=== PATIENT | female | born 1960 | race Caucasian/White ===

== ENCOUNTER 2019-04-07 12:57 | Emergency (ER) | payer SELFPAY ==
--- NOTE | 2019-04-07 13:02 | ERPHSYRPT ---
- History of Present Illness Time Seen by Provider: 04/07/19 13:01 Historian: patient, family Exam Limitations: no limitations Physician History: 58 y/o white female presents with right flank and right upper quad abd pain. pts pain with relatively quick onset earlier today. pt has had an appendectomy in past. pt denies vaginal bleeding. she denies hematuria or dysuria. pt has never had this pain before. Timing/Duration: today Activities at Onset: none Quality: sharpness, stabbing Abdominal Pain Onset Location: RUQ, flank (right) Pain Radiation: back Severity of Pain-Max: moderate Severity of Pain-Current: moderate Modifying Factors: Improves With: nothing Associated Symptoms: back, nausea Allergies/Adverse Reactions: morphine Allergy (Verified 04/07/19 13:16) Home Medications: Tramadol HCl 50 mg [Ultram 50 mg] 50 mg BID 04/07/19 [History] - Review of Systems Constitutional: No Symptoms Eyes: No Symptoms Ears, Nose, & Throat: No Symptoms Respiratory: No Symptoms Cardiac: No Symptoms Abdominal/Gastrointestinal: Abdominal Pain (ruq), Nausea Genitourinary Symptoms: No Symptoms, Incontinence Musculoskeletal: Back Pain Skin: No Symptoms Neurological: No Symptoms Psychological: No Symptoms Endocrine: No Symptoms Hematologic/Lymphatic: No Symptoms Immunological/Allergic: No Symptoms All Other Systems: Reviewed and Negative - Past Medical History Neurological History: No Pertinent History ENT History: No Pertinent History Cardiac History: No Pertinent History Respiratory History: No Pertinent History Endocrine Medical History: No Pertinent History Musculoskeletal History: No Pertinent History GI Medical History: No Pertinent History History: No Pertinent History Psycho-Social History: No Pertinent History Female Reproductive Disorders: No Pertinent History - Past Surgical History Neuro Surgical History: No Pertinent History Cardiac: No Pertinent History Respiratory: No Pertinent History Gastrointestinal: No Pertinent History Genitourinary: No Pertinent History Musculoskeletal: No Pertinent History Female Surgical History: No Pertinent History - Nursing Vital Signs Nursing Vital Signs: Initial Vital Signs Temperature 99.0 F 04/07/19 13:09 Pulse Rate 100 H 04/07/19 13:09 Respiratory Rate 16 04/07/19 13:09 Blood Pressure 148/88 04/07/19 13:09 O2 Sat by Pulse Oximetry 99 04/07/19 13:09 Pain Scale Pain Intensity 4 - Physical Exam General Appearance: moderate distress, alert, anxiety Eye Exam: PERRL/EOMI, eyes nml inspection Ears, Nose, Throat Exam: normal ENT inspection, moist mucous membranes Neck Exam: normal inspection, non-tender, supple, full range of motion Respiratory Exam: normal breath sounds, lungs clear, airway intact, No chest tenderness, No respiratory distress Cardiovascular Exam: regular rate/rhythm, normal heart sounds, normal peripheral pulses Gastrointestinal/Abdomen Exam: soft, normal bowel sounds, No tenderness Pelvic Exam: not done Rectal Exam: not done Back Exam: normal inspection, normal range of motion, No CVA tenderness, No vertebral tenderness Extremity Exam: normal inspection, normal range of motion, pelvis stable Neurologic Exam: alert, oriented x 3, cooperative, vice president pharmacy II-XII nml as tested Skin Exam: normal color, warm, dry Lymphatic Exam: No adenopathy SpO2 Interpretation: normal O2 Delivery: Room Air - Course Nursing assessment & vital signs reviewed: Yes Ordered Tests: Active Orders 24 hr Category Date Time Status IV Insertion STAT Care 04/07/19 13:36 Active ABDOMEN AND PELVIS W/0 CONTRAS [CT] Stat Exams 04/07/19 13:36 Ordered AMYLASE Stat Lab 04/07/19 13:36 Completed CBC W DIFF Stat Lab 04/07/19 13:36 Completed CMP Stat Lab 04/07/19 13:36 Completed CULTURE,URINE Stat Lab 04/07/19 13:41 Received LIPASE Stat Lab 04/07/19 13:36 Completed Lactic Acid Stat Lab 04/07/19 13:36 Completed UA W/RFX UR CULTURE Stat Lab 04/07/19 13:41 Completed Medication Summary Generic Name Dose Route Start Last Admin Trade Name Freq PRN Reason Stop Dose Admin Sodium Chloride 500 mls @ 500 mls/hr 04/07/19 15:42 Sodium Chloride 0.9% 500 Ml IV 04/07/19 16:41 .Q1H ONE Discontinued Medications Generic Name Dose Route Start Last Admin Trade Name Freq PRN Reason Stop Dose Admin Sodium Chloride 1,000 mls @ 999 mls/hr 04/07/19 13:36 04/07/19 15:37 Sodium Chloride 0.9% 1000 Ml IV 04/07/19 14:36 Infused .Q1H1M STA Infusion Sodium Chloride Confirm 04/07/19 13:43 Sodium Chloride 0.9% 1000 Ml Administered 04/07/19 13:44 Dose 1,000 mls @ ud .ROUTE .STK-MED ONE Ketorolac Tromethamine 30 mg 04/07/19 14:04 04/07/19 14:06 Toradol 30 Mg Injection IV 04/07/19 14:05 30 mg STAT ONE Administration Ketorolac Tromethamine Confirm 04/07/19 14:04 Toradol 30 Mg Injection Administered 04/07/19 14:05 Dose 30 mg .ROUTE .STK-MED ONE Meperidine HCl 25 mg 04/07/19 13:38 04/07/19 13:46 Demerol 25mg Syringe IV 04/07/19 13:39 25 mg STAT ONE Administration Meperidine HCl Confirm 04/07/19 13:43 Demerol 25mg Syringe Administered 04/07/19 13:44 Dose 25 mg .ROUTE .STK-MED ONE Ondansetron HCl 4 mg 04/07/19 13:36 04/07/19 13:46 Zofran 4 Mg/2 Ml Vial IV 04/07/19 13:37 4 mg STAT ONE Administration Ondansetron HCl Confirm 04/07/19 13:42 Zofran 4 Mg/2 Ml Vial Administered 04/07/19 13:43 Dose 4 mg .ROUTE .STK-MED ONE Lab/Rad Data: Laboratory Result Diagrams 04/07/19 13:36 04/07/19 13:36 Laboratory Results 04/07/19 04/07/19 04/07/19 Range/Units 13:41 13:36 13:36 WBC (4.0-10.5) K/mm3 RBC (4.1-5.4) M/mm3 Hgb (12.0-16.0) gm/dl Hct (35-47) % MCV (78-100) fl MCH (26-32) pg MCHC (32-36) g/dl RDW (11.5-14.0) % Plt Count (150-450) K/mm3 MPV (6-9.5) fl Gran % (36.0-66.0) % Eos # (Auto) (0-0.5) Absolute Lymphs (auto) (1.0-4.6) Absolute Monos (auto) (0.0-1.3) Lymphocytes % (24.0-44.0) % Monocytes % (0.0-12.0) % Eosinophils % (0.00-5.0) % Basophils % (0.0-0.4) % Absolute Granulocytes (1.4-6.9) Basophils # (0-0.4) Sodium 138 (137-145) mmol/L Potassium 3.7 (3.5-5.1) mmol/L Chloride 100 (98-107) mmol/L Carbon Dioxide 26 (22-30) mmol/L Anion Gap 15.5 H (5-15) MEQ/L BUN 9 (7-17) mg/dL Creatinine 0.47 L (0.52-1.04) mg/dL Estimated GFR > 60.0 ML/MIN Glucose 124 H (74-106) mg/dL Lactic Acid 1.4 (0.4-2.0) Calcium 9.8 (8.4-10.2) mg/dL Total Bilirubin 0.60 (0.2-1.3) mg/dL AST 47 H (14-36) U/L ALT 44 H (0-35) U/L Alkaline Phosphatase 82 (38-126) U/L Serum Total Protein 8.4 H (6.3-8.2) g/dL Albumin 4.8 (3.5-5.0) g/dL Amylase 70 (30-110) U/L Lipase 86 (23-300) U/L Urine Color YELLOW (YELLOW) Urine Appearance CLEAR (CLEAR) Urine pH 6.0 (5-6) Ur Specific [place] 1.014 (1.005-1.025) Urine Protein NEGATIVE (Negative) Urine Ketones NEGATIVE (NEGATIVE) Urine Blood LARGE (0-5) Dany/ul Urine Nitrite NEGATIVE (NEGATIVE) Urine Bilirubin NEGATIVE (NEGATIVE) Urine Urobilinogen NEGATIVE (0-1) mg/dL Ur Leukocyte Esterase NEGATIVE (NEGATIVE) Urine WBC (Auto) 3-5 (0-5) /HPF Urine RBC (Auto) 11-15 (0-2) /HPF U Epithel Cells (Auto) FEW (FEW) /HPF Urine Bacteria (Auto) RARE (NEGATIVE) /HPF Urine Mucus (Auto) SLIGHT (NEGATIVE) /HPF Urine Culture Reflexed YES (NO) Urine Glucose NEGATIVE (NEGATIVE) mg/dL 04/07/19 Range/Units 13:36 WBC 12.2 H (4.0-10.5) K/mm3 RBC 4.63 (4.1-5.4) M/mm3 Hgb 13.9 (12.0-16.0) gm/dl Hct 41.4 (35-47) % MCV 89.4 (78-100) fl MCH 30.0 (26-32) pg MCHC 33.6 (32-36) g/dl RDW 12.5 (11.5-14.0) % Plt Count 260 (150-450) K/mm3 MPV 11.1 H (6-9.5) fl Gran % 83.2 H (36.0-66.0) % Eos # (Auto) 0.07 (0-0.5) Absolute Lymphs (auto) 0.96 L (1.0-4.6) Absolute Monos (auto) 1.00 (0.0-1.3) Lymphocytes % 7.9 L (24.0-44.0) % Monocytes % 8.2 (0.0-12.0) % Eosinophils % 0.6 (0.00-5.0) % Basophils % 0.1 (0.0-0.4) % Absolute Granulocytes 10.17 H (1.4-6.9) Basophils # 0.01 (0-0.4) Sodium (137-145) mmol/L Potassium (3.5-5.1) mmol/L Chloride (98-107) mmol/L Carbon Dioxide (22-30) mmol/L Anion Gap (5-15) MEQ/L BUN (7-17) mg/dL Creatinine (0.52-1.04) mg/dL Estimated GFR ML/MIN Glucose (74-106) mg/dL Lactic Acid (0.4-2.0) Calcium (8.4-10.2) mg/dL Total Bilirubin (0.2-1.3) mg/dL AST (14-36) U/L ALT (0-35) U/L Alkaline Phosphatase (38-126) U/L Serum Total Protein (6.3-8.2) g/dL Albumin (3.5-5.0) g/dL Amylase (30-110) U/L Lipase (23-300) U/L Urine Color (YELLOW) Urine Appearance (CLEAR) Urine pH (5-6) Ur Specific [place] (1.005-1.025) Urine Protein (Negative) Urine Ketones (NEGATIVE) Urine Blood (0-5) Dany/ul Urine Nitrite (NEGATIVE) Urine Bilirubin (NEGATIVE) Urine Urobilinogen (0-1) mg/dL Ur Leukocyte Esterase (NEGATIVE) Urine WBC (Auto) (0-5) /HPF Urine RBC (Auto) (0-2) /HPF U Epithel Cells (Auto) (FEW) /HPF Urine Bacteria (Auto) (NEGATIVE) /HPF Urine Mucus (Auto) (NEGATIVE) /HPF Urine Culture Reflexed (NO) Urine Glucose (NEGATIVE) mg/dL - Progress Progress: improved, re-examined Progress Note: 04/07/19 15:43 ct abd/pelvis-acute cholecystitis with pericholecystic fluid and cholelithiasis 04/07/19 15:45 i had long d/w pt and her sig other regarding admission into hospital. i discussed risks of not being admitted. i discussed alternatives. i recommended she be admitted for further iv hydration, pain control, iv antibiotics and general surgery consultation. pt discussed with her sig other. despite my discussion and recommendation, pt has decided she wants to go home. Counseled pt/family regarding: lab results, diagnosis, need for follow-up, rad results - Departure Departure Disposition: Home Clinical Impression: Acute cholecystitis due to biliary calculus Condition: Stable Critical Care Time: No Referrals: DOCTOR,NO FAMILY [Primary Care Provider] - Additional Instructions: clear liquid diet. follow up with general surgeon for further management. return to ED if symptoms worsen. stop tramadol while taking norco. Prescriptions: Hydrocodone/APAP 5-325 Tab^^^ [[place] 5-325 Tablet^^^] 1 tab PO Q6HPRN PRN #10 tablet MDD 6 PRN Reason: Pain Ondansetron ODT 4 MG [Zofran Odt 4 mg] 4 mg PO Q6H PRN PRN #10 tab.rapdis PRN Reason: Vomiting Ciprofloxacin [Cipro 500 MG] 500 mg PO BID #14 tablet
[2019-04-07] MEDS ORDERED: Sodium Chloride 0.9% 1000 ML 1,000 ML IV STA (13:36)
[2019-04-07] MEDS ORDERED: Zofran 4 MG/2 ML VIAL IV ONE (13:36)
[2019-04-07] MEDS ORDERED: DEMEROL 25MG SYRINGE IV ONE ×2 (13:38→16:31)
[2019-04-07] MEDS ORDERED: Zofran 4 MG/2 ML VIAL ONE (13:42)
[2019-04-07] MEDS ORDERED: Sodium Chloride 0.9% 1000 ML 1,000 ML ONE (13:43)
[2019-04-07] MEDS ORDERED: DEMEROL 25MG SYRINGE ONE ×2 (13:43→16:34)
[2019-04-07 13:50] LABS: Absolute Neutrophil Ct (ANC) 10.17 (1.4-6.9); BASOPHIL % 0.1 % (0.0-0.4); Basophil (Absolute #) 0.01 (0-0.4); Eosinophil % 0.6 % (0.00-5.0); Eosinophil (Absolute #) 0.07 (0-0.5); Hematocrit 41.4 % (35-47); Hemoglobin 13.9 gm/dl (12.0-16.0); Lymphocyte (Absolute #) 0.96 (1.0-4.6); Lymphocytes % 7.9 % (24.0-44.0); Mean Cell Volume 89.4 fl (78-100); Mean Corpuscular Hgb Concent. 33.6 g/dl (32-36); Mean Platelet Volume 11.1 fl (6-9.5); Monocytes % 8.2 % (0.0-12.0); Neutrophil % 83.2 % (36.0-66.0); Platelet Count 260 K/mm3 (150-450); Red Blood Count 4.63 M/mm3 (4.1-5.4); Red Cell Distribution Width 12.5 % (11.5-14.0); White Blood Count 12.2 K/mm3 (4.0-10.5)
[2019-04-07 13:55] LABS: Appearance CLEAR (CLEAR); Bacteria RARE /HPF (NEGATIVE); Bilirubin NEGATIVE (NEGATIVE); Blood LARGE Ery/ul (0-5); Epithelial Cells FEW /HPF (FEW); Glucose NEGATIVE (NEGATIVE); Ketones NEGATIVE (NEGATIVE); Leukocyte Esterase NEGATIVE (NEGATIVE); Mucus SLIGHT /HPF (NEGATIVE); Nitrite NEGATIVE (NEGATIVE); Protein,Urine Dip NEGATIVE (Negative); Specific Gravity 1.014 (1.005-1.025); Urobilinogen NEGATIVE mg/dL (0-1)
[2019-04-07 14:03] LABS: ALBUMIN 4.8 g/dL (3.5-5.0); ALKALINE PHOSPHATASE 82 U/L (38-126); AMYLASE 70 U/L (30-110); ANION GAP 15.5 MEQ/L (5-15); BLOOD UREA NITROGEN 9 mg/dL (7-17); CHLORIDE 100 mmol/L (98-107); Calcium 9.8 mg/dL (8.4-10.2); Carbon Dioxide 26 mmol/L (22-30); Creatinine 1 0.47 mg/dL (0.52-1.04); Glucose 124 mg/dL (74-106); LIPASE 86 U/L (23-300); Potassium 3.7 mmol/L (3.5-5.1); SGOT/AST 47 U/L (14-36); SGPT/ALT 44 U/L (0-35); SODIUM 138 mmol/L (137-145); Total Protein 8.4 g/dL (6.3-8.2)
[2019-04-07] MEDS ORDERED: TORAdol 30 mg Injection IV ONE (14:04)
[2019-04-07] MEDS ORDERED: TORAdol 30 mg Injection ONE (14:04)
[2019-04-07] MEDS ORDERED: Sodium Chloride 0.9% 500 ML 500 ML IV ONE ×2 (15:42→15:51)
[2019-04-07] MEDS ORDERED: Cipro 500 MG PO ONE (15:45)
[2019-04-07] MEDS ORDERED: Cipro 500 MG ONE (15:51)
[2019-04-07 15:58] VITALS: BP 129/77; PULSE 100; O2SAT 99
--- NOTE | 2019-04-07 17:12 | XRAY ---
Indication: Right abdomen pain and vomiting. Multiple contiguous axial images obtained through the abdomen and pelvis without contrast as ordered. Comparison: None. Lung bases are clear. Heart is not enlarged. Noncontrasted stomach and bowel loops appear nonobstructed. Patient reports previous appendectomy. There is mild diffuse scattered colonic fecal debris throughout. Abnormally distended gallbladder with at least 2 gallstones, largest 2 cm. Left lobe of the liver demonstrates 9 mm hypodense lesion. Remaining liver, pancreas, spleen, adrenal glands, kidneys, ureters, and bladder appear unremarkable for noncontrast exam. There are mild aortoiliac calcifications without AAA. Osseous structures intact with mild lumbosacral junction degenerative changes. Inferior medial right femoral head demonstrates chunky heterotopic ossifications either degenerative versus old injury. Impression: 1. Abnormally distended gallbladder with gallstones. Gallbladder sonogram may yield further information. 2. Fecal stasis without obstruction. 3. Indeterminate left lobe hypodense hepatic lesion. Sonogram or CT liver with contrast using hemangioma protocol may yield further information. 4. Incidental chronic bony findings. Comment: Preliminary interpretation was made by [facility]. No critical discrepancy. CTDI 3.19
== END 2019-04-07 16:45 | disposition home or self-care (01) ==
LOC: ED 12:57
DX: K80.00 Calculus of gallbladder with acute cholecystitis without obstruction (principal); R10.11 Right upper quadrant pain; R11.0 Nausea
CPT/HCPCS: 36415; 74176; 80053; 81001; 82150; 83605; 83690; 85025; 87086; 96360; 96361; 96374; 96375; 96376; 99284; J1885; J2175; J2405; A9270-GY

== ENCOUNTER 2019-04-15 08:40 | Inpatient (IN) | payer MEDICAID ==
--- NOTE | 2019-04-15 09:10 | ERPHSYRPT ---
- History of Present Illness Time Seen by Provider: 04/15/19 09:00 Historian: patient Exam Limitations: no limitations Patient Subjective Stated Complaint: states has had ruq abd pain since yesterday. hx gallstones and was seen last week for same pain. is scheduled to see surgeon on apr 23 for consult for surgery. denies n/v/d. Triage Nursing Assessment: ambulated to room per self. skin w/d, color normal, resp nonlabored. abd tender ruq. normal bowel sounds. Physician History: 58 y/o white female seen by me 8 days ago for same sx. pt has an appt with surgeon 04/23/19. pt has known h/o cholelithiasis and had ct evidence of acute cholecystitis last week. she refused admission. sx of ruq abd has recurred but n /v/d have not recurred. pt sx responded to demerol. pt can take norco. she is out of her pain meds. pt sent home 8 days ago with rx for cipro, zofran and norco. denies obstructive sx. Timing/Duration: yesterday Quality: sharpness, stabbing Abdominal Pain Onset Location: RUQ Pain Radiation: no radiation Severity of Pain-Max: moderate Severity of Pain-Current: moderate Associated Symptoms: No chest pain, No diarrhea, No nausea, No vomiting Previous symptoms: same symptoms as today Allergies/Adverse Reactions: morphine Allergy (Verified 04/15/19 08:54) Home Medications: No Reportable Medications [No Reported Medications] 04/15/19 [History] Hx Tetanus, Diphtheria Vaccination/Date Given: No Hx Influenza Vaccination/Date Given: Yes Hx Pneumococcal Vaccination/Date Given: No - Review of Systems Constitutional: No Symptoms Eyes: No Symptoms Ears, Nose, & Throat: No Symptoms Respiratory: No Symptoms Cardiac: No Symptoms Abdominal/Gastrointestinal: Abdominal Pain (ruq) Genitourinary Symptoms: No Symptoms Musculoskeletal: No Symptoms Skin: No Symptoms Neurological: No Symptoms Psychological: No Symptoms Endocrine: No Symptoms Hematologic/Lymphatic: No Symptoms Immunological/Allergic: No Symptoms All Other Systems: Reviewed and Negative - Past Medical History Pertinent Past Medical History: Yes Neurological History: No Pertinent History ENT History: No Pertinent History Cardiac History: No Pertinent History Respiratory History: No Pertinent History Endocrine Medical History: No Pertinent History Musculoskeletal History: No Pertinent History GI Medical History: Gallbladder Disease History: No Pertinent History Psycho-Social History: No Pertinent History Female Reproductive Disorders: No Pertinent History - Past Surgical History Past Surgical History: Yes Neuro Surgical History: No Pertinent History Cardiac: No Pertinent History Respiratory: No Pertinent History Gastrointestinal: Appendectomy Genitourinary: No Pertinent History Musculoskeletal: No Pertinent History Female Surgical History: Hysterectomy, Section Other Surgical History: carpal tunnel - Social History Smoking Status: Never smoker Exposure to second hand smoke: No Drug Use: none Patient Lives Alone: No - Female History Hx Now: No - Nursing Vital Signs Nursing Vital Signs: Initial Vital Signs Temperature 97.9 F 04/15/19 08:43 Pulse Rate 118 H 04/15/19 08:43 Respiratory Rate 18 04/15/19 08:43 Blood Pressure 147/92 04/15/19 08:43 O2 Sat by Pulse Oximetry 100 04/15/19 08:43 Pain Scale Pain Intensity 5 - Physical Exam General Appearance: moderate distress, alert, anxiety Eye Exam: PERRL/EOMI, eyes nml inspection Ears, Nose, Throat Exam: normal ENT inspection, moist mucous membranes Neck Exam: normal inspection, non-tender, supple, full range of motion Respiratory Exam: normal breath sounds, lungs clear, airway intact, No chest tenderness, No respiratory distress Cardiovascular Exam: tachycardia Pelvic Exam: not done Rectal Exam: not done Back Exam: normal inspection, normal range of motion, No CVA tenderness, No vertebral tenderness Extremity Exam: normal inspection, normal range of motion, pelvis stable Neurologic Exam: alert, oriented x 3, cooperative, 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 Skin Exam: normal color, warm, dry Lymphatic Exam: No adenopathy SpO2 Interpretation: normal SpO2: 100 O2 Delivery: Room Air - Course Nursing assessment & vital signs reviewed: Yes Ordered Tests: Active Orders 24 hr Category Date Time Status IV Insertion STAT Care 04/15/19 09:12 Active AMYLASE Stat Lab 04/15/19 09:20 Completed CBC W DIFF Stat Lab 04/15/19 09:20 Completed CMP Stat Lab 04/15/19 09:20 Completed LIPASE Stat Lab 04/15/19 09:20 Completed Lactic Acid Stat Lab 04/15/19 09:12 Completed UA W/RFX UR CULTURE Stat Lab 04/15/19 09:20 Completed Transfer Order Routine Transfer 04/15/19 Ordered Medication Summary Discontinued Medications Generic Name Dose Route Start Last Admin Trade Name Freq PRN Reason Stop Dose Admin Hydromorphone HCl 1 mg 04/15/19 09:12 04/15/19 09:19 Hydromorphone 1 Mg/Ml Ampule IV 04/15/19 09:13 Not Given STAT ONE Sodium Chloride 1,000 mls @ 999 mls/hr 04/15/19 09:12 04/15/19 10:46 Sodium Chloride 0.9% 1000 Ml IV 04/15/19 10:12 Infused .Q1H1M STA Infusion Sodium Chloride Confirm 04/15/19 09:22 Sodium Chloride 0.9% 1000 Ml Administered 04/15/19 09:23 Dose 1,000 mls @ ud .ROUTE .STK-MED ONE Meperidine HCl 25 mg 04/15/19 09:17 04/15/19 09:25 Demerol 25mg Syringe IV 04/15/19 09:18 25 mg STAT ONE Administration Meperidine HCl Confirm 04/15/19 09:22 Demerol 25mg Syringe Administered 04/15/19 09:23 Dose 25 mg .ROUTE .STK-MED ONE Meperidine HCl 25 mg 04/15/19 10:30 04/15/19 10:48 Demerol 25mg Syringe IV 04/15/19 10:31 25 mg STAT ONE Administration Meperidine HCl Confirm 04/15/19 10:47 Demerol 25mg Syringe Administered 04/15/19 10:48 Dose 25 mg .ROUTE .STK-MED ONE Ondansetron HCl 4 mg 04/15/19 09:12 04/15/19 09:25 Zofran 4 Mg/2 Ml Vial IV 04/15/19 09:13 4 mg STAT ONE Administration Ondansetron HCl Confirm 04/15/19 09:22 Zofran 4 Mg/2 Ml Vial Administered 04/15/19 09:23 Dose 4 mg .ROUTE .STK-MED ONE Lab/Rad Data: Laboratory Result Diagrams 04/15/19 09:20 04/15/19 09:20 Laboratory Results 04/15/19 04/15/19 04/15/19 Range/Units 09:20 09:20 09:20 WBC 7.7 (4.0-10.5) K/mm3 RBC 4.15 (4.1-5.4) M/mm3 Hgb 12.4 (12.0-16.0) gm/dl Hct 38.2 (35-47) % MCV 92.0 (78-100) fl MCH 29.9 (26-32) pg MCHC 32.5 (32-36) g/dl RDW 12.1 (11.5-14.0) % Plt Count 312 (150-450) K/mm3 MPV 10.4 H (6-9.5) fl Gran % 68.4 H (36.0-66.0) % Eos # (Auto) 0.40 (0-0.5) Absolute Lymphs (auto) 1.35 (1.0-4.6) Absolute Monos (auto) 0.65 (0.0-1.3) Lymphocytes % 17.6 L (24.0-44.0) % Monocytes % 8.5 (0.0-12.0) % Eosinophils % 5.2 H (0.00-5.0) % Basophils % 0.3 (0.0-0.4) % Absolute Granulocytes 5.24 (1.4-6.9) Basophils # 0.02 (0-0.4) Sodium 141 (137-145) mmol/L Potassium 4.7 (3.5-5.1) mmol/L Chloride 103 (98-107) mmol/L Carbon Dioxide 29 (22-30) mmol/L Anion Gap 13.6 (5-15) MEQ/L BUN 11 (7-17) mg/dL Creatinine 0.60 (0.52-1.04) mg/dL Estimated GFR > 60.0 ML/MIN Glucose 99 (74-106) mg/dL Lactic Acid (0.4-2.0) Calcium 9.7 (8.4-10.2) mg/dL Total Bilirubin 0.40 (0.2-1.3) mg/dL AST 23 (14-36) U/L ALT 31 (0-35) U/L Alkaline Phosphatase 110 (38-126) U/L Serum Total Protein 8.0 (6.3-8.2) g/dL Albumin 4.2 (3.5-5.0) g/dL Amylase 64 (30-110) U/L Lipase 90 (23-300) U/L Urine Color YELLOW (YELLOW) Urine Appearance SLIGHTLY CLOUDY (CLEAR) Urine pH 8.0 (5-6) Ur Specific [place] 1.014 (1.005-1.025) Urine Protein NEGATIVE (Negative) Urine Ketones NEGATIVE (NEGATIVE) Urine Blood SMALL (0-5) Dany/ul Urine Nitrite NEGATIVE (NEGATIVE) Urine Bilirubin NEGATIVE (NEGATIVE) Urine Urobilinogen NEGATIVE (0-1) mg/dL Ur Leukocyte Esterase NEGATIVE (NEGATIVE) Urine WBC (Auto) 0-2 (0-5) /HPF Urine RBC (Auto) 6-10 (0-2) /HPF U Epithel Cells (Auto) FEW (FEW) /HPF Urine Bacteria (Auto) FEW (NEGATIVE) /HPF Urine Mucus (Auto) SLIGHT (NEGATIVE) /HPF Urine Culture Reflexed NO (NO) Urine Glucose NEGATIVE (NEGATIVE) mg/dL 04/15/19 Range/Units 09:12 WBC (4.0-10.5) K/mm3 RBC (4.1-5.4) M/mm3 Hgb (12.0-16.0) gm/dl Hct (35-47) % MCV (78-100) fl MCH (26-32) pg MCHC (32-36) g/dl RDW (11.5-14.0) % Plt Count (150-450) K/mm3 MPV (6-9.5) fl Gran % (36.0-66.0) % Eos # (Auto) (0-0.5) Absolute Lymphs (auto) (1.0-4.6) Absolute Monos (auto) (0.0-1.3) Lymphocytes % (24.0-44.0) % Monocytes % (0.0-12.0) % Eosinophils % (0.00-5.0) % Basophils % (0.0-0.4) % Absolute Granulocytes (1.4-6.9) Basophils # (0-0.4) Sodium (137-145) mmol/L Potassium (3.5-5.1) mmol/L Chloride (98-107) mmol/L Carbon Dioxide (22-30) mmol/L Anion Gap (5-15) MEQ/L BUN (7-17) mg/dL Creatinine (0.52-1.04) mg/dL Estimated GFR ML/MIN Glucose (74-106) mg/dL Lactic Acid 1.3 (0.4-2.0) Calcium (8.4-10.2) mg/dL Total Bilirubin (0.2-1.3) mg/dL AST (14-36) U/L ALT (0-35) U/L Alkaline Phosphatase (38-126) U/L Serum Total Protein (6.3-8.2) g/dL Albumin (3.5-5.0) g/dL Amylase (30-110) U/L Lipase (23-300) U/L Urine Color (YELLOW) Urine Appearance (CLEAR) Urine pH (5-6) Ur Specific [place] (1.005-1.025) Urine Protein (Negative) Urine Ketones (NEGATIVE) Urine Blood (0-5) Dany/ul Urine Nitrite (NEGATIVE) Urine Bilirubin (NEGATIVE) Urine Urobilinogen (0-1) mg/dL Ur Leukocyte Esterase (NEGATIVE) Urine WBC (Auto) (0-5) /HPF Urine RBC (Auto) (0-2) /HPF U Epithel Cells (Auto) (FEW) /HPF Urine Bacteria (Auto) (NEGATIVE) /HPF Urine Mucus (Auto) (NEGATIVE) /HPF Urine Culture Reflexed (NO) Urine Glucose (NEGATIVE) mg/dL - Progress Progress: improved, pain not gone completely, re-examined Progress Note: 04/15/19 11:[address] morgan. i reviewed pts labs, xray results, condition and hx with her. she accepts pt to be placed in observation with [facility] surgical consult Discussed with : Jordyn Counseled pt/family regarding: lab results, diagnosis - Departure Departure Disposition: Observation Clinical Impression: RUQ abdominal pain, Cholecystitis with cholelithiasis Condition: Stable Critical Care Time: No Referrals: DOCTOR,NO FAMILY [Primary Care Provider] -
[2019-04-15] MEDS ORDERED: Zofran 4 MG/2 ML VIAL IV ONE (09:12)
[2019-04-15] MEDS ORDERED: Hydromorphone 1 mg/ml Ampule IV ONE (09:12)
[2019-04-15] MEDS ORDERED: Sodium Chloride 0.9% 1000 ML 1,000 ML IV STA (09:12)
[2019-04-15] MEDS ORDERED: DEMEROL 25MG SYRINGE IV ONE ×2 (09:17→10:30)
[2019-04-15] MEDS ORDERED: Zofran 4 MG/2 ML VIAL ONE (09:22)
[2019-04-15] MEDS ORDERED: Sodium Chloride 0.9% 1000 ML 1,000 ML ONE (09:22)
[2019-04-15] MEDS ORDERED: DEMEROL 25MG SYRINGE ONE ×2 (09:22→10:47)
[2019-04-15 09:30] LABS: Absolute Neutrophil Ct (ANC) 5.24 (1.4-6.9); BASOPHIL % 0.3 % (0.0-0.4); Basophil (Absolute #) 0.02 (0-0.4); Eosinophil % 5.2 % (0.00-5.0); Hematocrit 38.2 % (35-47); Hemoglobin 12.4 gm/dl (12.0-16.0); Lymphocyte (Absolute #) 1.35 (1.0-4.6); Lymphocytes % 17.6 % (24.0-44.0); Mean Corpuscular Hemoglobin 29.9 pg (26-32); Mean Corpuscular Hgb Concent. 32.5 g/dl (32-36); Mean Platelet Volume 10.4 fl (6-9.5); Monocyte (Absolute #) 0.65 (0.0-1.3); Monocytes % 8.5 % (0.0-12.0); Neutrophil % 68.4 % (36.0-66.0); Platelet Count 312 K/mm3 (150-450); Red Blood Count 4.15 M/mm3 (4.1-5.4); Red Cell Distribution Width 12.1 % (11.5-14.0); White Blood Count 7.7 K/mm3 (4.0-10.5)
[2019-04-15 09:41] LABS: Appearance SLIGHTLY CLOUDY (CLEAR); Bacteria FEW /HPF (NEGATIVE); Bilirubin NEGATIVE (NEGATIVE); Blood SMALL Ery/ul (0-5); Epithelial Cells FEW /HPF (FEW); Glucose NEGATIVE (NEGATIVE); Ketones NEGATIVE (NEGATIVE); Leukocyte Esterase NEGATIVE (NEGATIVE); Mucus SLIGHT /HPF (NEGATIVE); Nitrite NEGATIVE (NEGATIVE); Protein,Urine Dip NEGATIVE (Negative); Specific Gravity 1.014 (1.005-1.025); Urobilinogen NEGATIVE mg/dL (0-1); WBC 0-2 /HPF (0-5)
[2019-04-15 09:42] LABS: ALBUMIN 4.2 g/dL (3.5-5.0); ALKALINE PHOSPHATASE 110 U/L (38-126); AMYLASE 64 U/L (30-110); ANION GAP 13.6 MEQ/L (5-15); BLOOD UREA NITROGEN 11 mg/dL (7-17); CHLORIDE 103 mmol/L (98-107); Calcium 9.7 mg/dL (8.4-10.2); Carbon Dioxide 29 mmol/L (22-30); Glucose 99 mg/dL (74-106); LIPASE 90 U/L (23-300); Potassium 4.7 mmol/L (3.5-5.1); SGOT/AST 23 U/L (14-36); SGPT/ALT 31 U/L (0-35); SODIUM 141 mmol/L (137-145)
[2019-04-15] MEDS ORDERED: Zofran 4 MG/2 ML VIAL IV PRN (11:59)
[2019-04-15] MEDS ORDERED: DEMEROL 50 MG IV PRN (11:59)
[2019-04-15] MEDS: Sodium Chloride 0.9% 1000 ML 1,000 ML IV SCH ×2 (13:27→23:15)
[2019-04-15] MEDS: Zosyn 3.375GM/100 Ml D5W 3.375 GM/100 ML IVPB IV SCH ×3 (13:30→23:21)
[2019-04-15] MEDS: DILAUDID 2 MG INJECTION IV PRN ×2 (18:42→23:10)
[2019-04-16] MEDS: DILAUDID 2 MG INJECTION IV PRN (03:25)
[2019-04-16] MEDS: Phenergan 25 MG INJ IV PRN ×3 (04:43→19:45)
[2019-04-16] MEDS: Zosyn 3.375GM/100 Ml D5W 3.375 GM/100 ML IVPB IV SCH ×3 (05:50→19:43)
--- NOTE | 2019-04-16 07:43 | CONS ---
CONSULT DATE: 03/16/2019 REASON FOR CONSULT: Cholecystitis, cholelithiasis. HISTORY: The patient was here about a week ago with similar attack. She had a CT scan showing two - 2 cm stones. She got better and she was discharged. She presents this time with second major episode and the pain was very similar. Her white count is normal at 7,000. Her bilirubin is normal at 0.4. Her liver functions are normal. She is alert and oriented. She is having fair amount of pain in the right upper quadrant. She has no peritoneal signs. She is quite thin in nature. CT scan earlier a week ago did not suggest anything else. IMPRESSION: She clearly has symptomatic cholelithiasis and is having a second episode of acute cholecystitis. She is on IV fluids, IV antibiotics and GI rest. She will probably have surgical intervention tomorrow.
--- NOTE | 2019-04-16 08:23 | PCM.HP ---
History of Present Illness - Chief Complaint Chief Complaint: cholecystitis with cholelithiasis Date: 04/16/19 History of Present Illness: is a 58 year old female seen and examined this am following ER admission for cholecystitis. Patient reports that she was having severe abdominal pain last week and went to the ER. She was told she needed to have gallbladder surgery at that time but she declined and wanted to try to alleviate her symptoms with diet modification. Patient reports that she then started having severe abdominal pain on tuesday and went to the ER. They again recommended surgery which she was agreeable to. Patient reports that she has had some nausea and vomiting. Denies diarrhea or constipation. Patient reports that she is not on any routine home meds. Patient reports this am she has a severe headache. She denies hx of migraines. She stated that the headache she has was making her nauseated. - Review of Systems Constitutional: No Fever Eyes: No Symptoms Ears, Nose, & Throat: No Symptoms Respiratory: No Cough, No Short Of Breath Cardiac: No Symptoms Abdominal/Gastrointestinal: Abdominal Pain, Nausea, Vomiting, No Diarrhea, No Constipation Genitourinary Symptoms: No Dysuria, No Frequency, No Hematuria, No Incontinence Musculoskeletal: No Symptoms Skin: No Symptoms Neurological: Headache (Severe which started after taking Diluadid) Psychological: No Alcohol Abuse, No Drug Abuse Hematologic/Lymphatic: No Symptoms Medications & Allergies Home Medications: Home Medication List No Reportable Medications [No Reported Medications] 04/15/19 [History Confirmed 04/15/19] Allergies/Adverse Reactions: Allergies Allergy/AdvReac Type Severity Reaction Status Date / Time morphine Allergy Verified 04/15/19 08:54 - Past Medical History Past Medical History: Yes Neurological History: No Pertinent History ENT History: No Pertinent History Cardiac History: No Pertinent History Respiratory History: No Pertinent History Endocrine Medical History: No Pertinent History Musculoskelatal History: Arthritis GI Medical History: Gallbladder Disease History: No Pertinent History Pyscho-Social History: No Pertinent History Reproductive Disorders: Abnormal Uterine Bleeding, Menstrual Problems - Female History Are you now?: No - Past Surgical History Past Surgical History: Yes Neuro Surgical History: No Pertinent History Cardiac History: No Pertinent History Respiratory Surgery: No Pertinent History GI Surgical History: Appendectomy Genitourinary Surgical Hx: No Pertinent History Musculskeletal Surgical Hx: No Pertinent History Female Surgical History: Hysterectomy, Section Other Surgical History: carpal tunnel - Social History Smoking Status: Former smoker Exposure to second hand smoke: No Alcohol: Rarely Drug Use: none Significant Family History: no pertinent family hx - Physical Exam Vital Signs: Vital Signs - 24 hr Temp Pulse Resp BP Pulse Ox 04/16/19 07:10 97.9 F 79 18 134/64 97 04/16/19 05:27 98.5 F 80 20 117/59 97 04/16/19 04:08 98.5 F 80 20 117/59 97 04/15/19 23:51 98.5 F 78 18 127/62 96 04/15/19 20:00 98.2 F 77 16 125/64 96 04/15/19 16:39 98 F 86 20 135/63 95 04/15/19 13:02 97.7 F 95 H 20 129/61 94 L 04/15/19 12:16 97.7 F 95 H 20 129/61 94 L 04/15/19 12:00 97.7 F 95 H 20 129/61 94 L 04/15/19 11:59 94 L 04/15/19 11:32 100 04/15/19 11:27 78 18 125/70 100 04/15/19 10:07 81 18 127/73 100 04/15/19 09:35 83 16 146/74 99 04/15/19 08:43 97.9 F 118 H 18 147/92 100 General Appearance: moderate distress Neurologic Exam: alert, oriented x 3, cooperative, agitation Eye Exam: PERRL/EOMI Ears, Nose, Throat Exam: moist mucous membranes Neck Exam: normal inspection Respiratory Exam: normal breath sounds, lungs clear, No respiratory distress Cardiovascular Exam: regular rate/rhythm, normal heart sounds, No murmur, No friction rub, No gallop Gastrointestinal/Abdomen Exam: soft, tenderness (more R lateral side and RLQ pain.), No mass, No guarding, No rebound Pelvic Exam: not done Rectal Exam: not done Extremity Exam: normal inspection, No pedal edema, No swelling Skin Exam: normal color, warm, dry, No rash, No jaundice Results - Labs Lab/Micro Results: Lab Results-Last 24 Hours 04/15/19 04/15/19 04/15/19 Range/Units 09:12 09:20 09:20 WBC 7.7 (4.0-10.5) K/mm3 RBC 4.15 (4.1-5.4) M/mm3 Hgb 12.4 (12.0-16.0) gm/dl Hct 38.2 (35-47) % MCV 92.0 (78-100) fl MCH 29.9 (26-32) pg MCHC 32.5 (32-36) g/dl RDW 12.1 (11.5-14.0) % Plt Count 312 (150-450) K/mm3 MPV 10.4 H (6-9.5) fl Gran % 68.4 H (36.0-66.0) % Eos # (Auto) 0.40 (0-0.5) Absolute Lymphs (auto) 1.35 (1.0-4.6) Absolute Monos (auto) 0.65 (0.0-1.3) Lymphocytes % 17.6 L (24.0-44.0) % Monocytes % 8.5 (0.0-12.0) % Eosinophils % 5.2 H (0.00-5.0) % Basophils % 0.3 (0.0-0.4) % Absolute Granulocytes 5.24 (1.4-6.9) Basophils # 0.02 (0-0.4) Sodium 141 (137-145) mmol/L Potassium 4.7 (3.5-5.1) mmol/L Chloride 103 (98-107) mmol/L Carbon Dioxide 29 (22-30) mmol/L Anion Gap 13.6 (5-15) MEQ/L BUN 11 (7-17) mg/dL Creatinine 0.60 (0.52-1.04) mg/dL Estimated GFR > 60.0 ML/MIN Glucose 99 (74-106) mg/dL Lactic Acid 1.3 (0.4-2.0) Calcium 9.7 (8.4-10.2) mg/dL Total Bilirubin 0.40 (0.2-1.3) mg/dL AST 23 (14-36) U/L ALT 31 (0-35) U/L Alkaline Phosphatase 110 (38-126) U/L Serum Total Protein 8.0 (6.3-8.2) g/dL Albumin 4.2 (3.5-5.0) g/dL Amylase 64 (30-110) U/L Lipase 90 (23-300) U/L Urine Color (YELLOW) Urine Appearance (CLEAR) Urine pH (5-6) Ur Specific [place] (1.005-1.025) Urine Protein (Negative) Urine Ketones (NEGATIVE) Urine Blood (0-5) Dany/ul Urine Nitrite (NEGATIVE) Urine Bilirubin (NEGATIVE) Urine Urobilinogen (0-1) mg/dL Ur Leukocyte Esterase (NEGATIVE) Urine WBC (Auto) (0-5) /HPF Urine RBC (Auto) (0-2) /HPF U Epithel Cells (Auto) (FEW) /HPF Urine Bacteria (Auto) (NEGATIVE) /HPF Urine Mucus (Auto) (NEGATIVE) /HPF Urine Culture Reflexed (NO) Urine Glucose (NEGATIVE) mg/dL 04/15/19 Range/Units 09:20 WBC (4.0-10.5) K/mm3 RBC (4.1-5.4) M/mm3 Hgb (12.0-16.0) gm/dl Hct (35-47) % MCV (78-100) fl MCH (26-32) pg MCHC (32-36) g/dl RDW (11.5-14.0) % Plt Count (150-450) K/mm3 MPV (6-9.5) fl Gran % (36.0-66.0) % Eos # (Auto) (0-0.5) Absolute Lymphs (auto) (1.0-4.6) Absolute Monos (auto) (0.0-1.3) Lymphocytes % (24.0-44.0) % Monocytes % (0.0-12.0) % Eosinophils % (0.00-5.0) % Basophils % (0.0-0.4) % Absolute Granulocytes (1.4-6.9) Basophils # (0-0.4) Sodium (137-145) mmol/L Potassium (3.5-5.1) mmol/L Chloride (98-107) mmol/L Carbon Dioxide (22-30) mmol/L Anion Gap (5-15) MEQ/L BUN (7-17) mg/dL Creatinine (0.52-1.04) mg/dL Estimated GFR ML/MIN Glucose (74-106) mg/dL Lactic Acid (0.4-2.0) Calcium (8.4-10.2) mg/dL Total Bilirubin (0.2-1.3) mg/dL AST (14-36) U/L ALT (0-35) U/L Alkaline Phosphatase (38-126) U/L Serum Total Protein (6.3-8.2) g/dL Albumin (3.5-5.0) g/dL Amylase (30-110) U/L Lipase (23-300) U/L Urine Color YELLOW (YELLOW) Urine Appearance SLIGHTLY CLOUDY (CLEAR) Urine pH 8.0 (5-6) Ur Specific [place] 1.014 (1.005-1.025) Urine Protein NEGATIVE (Negative) Urine Ketones NEGATIVE (NEGATIVE) Urine Blood SMALL (0-5) Dany/ul Urine Nitrite NEGATIVE (NEGATIVE) Urine Bilirubin NEGATIVE (NEGATIVE) Urine Urobilinogen NEGATIVE (0-1) mg/dL Ur Leukocyte Esterase NEGATIVE (NEGATIVE) Urine WBC (Auto) 0-2 (0-5) /HPF Urine RBC (Auto) 6-10 (0-2) /HPF U Epithel Cells (Auto) FEW (FEW) /HPF Urine Bacteria (Auto) FEW (NEGATIVE) /HPF Urine Mucus (Auto) SLIGHT (NEGATIVE) /HPF Urine Culture Reflexed NO (NO) Urine Glucose NEGATIVE (NEGATIVE) mg/dL Assessment/Plan (1) Cholecystitis with cholelithiasis Current Visit: Yes Status: Acute Assessment & Plan: Patient was evaluated by Dr Jack Garza last evening and patient will be going for surgery this am with Dr Marielena Garza. Patient has been receiving diluadid for her abdominal pain which is causing her to have a headache. She was getting diluadid due to reported hx morphine allergy. Will hold off on diluadid at this time and start with the demeral which she tolerated in ER. Will follow surgery' s recommendations for diet, pain control, antibiotics and plan for DC and follow up (2) Headache Current Visit: Yes Status: Acute Assessment & Plan: Likely medication side effect. Will see if surgery is ok with one dose of Toradol prior to surgery. Patient is npo so no Tylenol was given at this time. Will discontinue diluadid as potential cause of her headache and switch to fentanyl Code(s): R51 - HEADACHE (3) RUQ abdominal pain Current Visit: Yes Status: Acute Code(s): R10.11 - RIGHT UPPER QUADRANT PAIN (4) Acute cholecystitis due to biliary calculus Current Visit: No Status: Acute Code(s): K80.00 - CALCULUS OF GALLBLADDER W ACUTE CHOLECYST W/O OBSTRUCTION
[2019-04-16] MEDS ORDERED: Lactated Ringers 1,000 ML IV ONE ×2 (08:35→15:12)
[2019-04-16] MEDS ORDERED: Sensorcaine 0.25% 10 ML ONE (08:35)
[2019-04-16] MEDS ORDERED: SUBLIMAZE 100 MCG/2 ML IV ONE (08:55)
[2019-04-16 09:30] LABS: Absolute Neutrophil Ct (ANC) 5.97 (1.4-6.9); BASOPHIL % 0.3 % (0.0-0.4); Basophil (Absolute #) 0.02 (0-0.4); Eosinophil % 1.6 % (0.00-5.0); Eosinophil (Absolute #) 0.12 (0-0.5); Hematocrit 37.6 % (35-47); Hemoglobin 11.9 gm/dl (12.0-16.0); Lymphocyte (Absolute #) 0.97 (1.0-4.6); Mean Cell Volume 92.2 fl (78-100); Mean Corpuscular Hemoglobin 29.2 pg (26-32); Mean Corpuscular Hgb Concent. 31.6 g/dl (32-36); Mean Platelet Volume 10.4 fl (6-9.5); Monocytes % 5.3 % (0.0-12.0); Neutrophil % 79.8 % (36.0-66.0); Platelet Count 317 K/mm3 (150-450); Red Blood Count 4.08 M/mm3 (4.1-5.4); Red Cell Distribution Width 12.1 % (11.5-14.0); White Blood Count 7.5 K/mm3 (4.0-10.5)
[2019-04-16 09:44] LABS: ALKALINE PHOSPHATASE 115 U/L (38-126); AMYLASE 79 U/L (30-110); ANION GAP 14.2 MEQ/L (5-15); BLOOD UREA NITROGEN 7 mg/dL (7-17); CHLORIDE 103 mmol/L (98-107); Calcium 9.3 mg/dL (8.4-10.2); Carbon Dioxide 28 mmol/L (22-30); Creatinine 1 0.62 mg/dL (0.52-1.04); Direct Bilirubin 0.3 mg/dL (0.0-0.4); Glucose 104 mg/dL (74-106); LIPASE 83 U/L (23-300); SGOT/AST 53 U/L (14-36); SGPT/ALT 63 U/L (0-35); SODIUM 141 mmol/L (137-145); Total Protein 7.8 g/dL (6.3-8.2)
[2019-04-16] MEDS: Sodium Chloride 0.9% 1000 ML 1,000 ML IV SCH (10:32)
--- NOTE | 2019-04-16 10:40 | XRAY ---
Exam: Gallbladder ultrasound from 04/16/2019. Comparison: CT of the abdomen and pelvis without IV contrast from 04/07/2019. Indication: Cholelithiasis. Findings: The gallbladder is dilated measuring approximately 13.6 cm in length and up to 4.5 cm in width. The gallbladder wall is thickened measuring up to 5.1 mm in AP dimension on a transverse left lateral decubitus image. There are multiple scattered echogenic posterior shadowing stones within the gallbladder lumen. I believe at least a couple the stones with some biliary sludge are seen within the gallbladder neck. Several other posterior shadowing gallstones are seen within the body and fundus of the gallbladder lumen. The proximal common bile duct measures 5 mm which is normal. The liver is not enlarged. The left lobe of the liver reveals a 1 cm diameter echogenic density which might represent a liver hemangioma or focal fat density within the ligamentum teres. It is difficult to correlate the precise location of this sonographic finding with the CT from 04/07/2019. The CT exam had suggested a 9 mm hypo-attenuated lesion within the left hepatic lobe. No other liver lesion is seen. The liver does not appear enlarged. No intrahepatic biliary duct distention is seen. Normal portal venous flow towards the liver is seen. The pancreas appears grossly unremarkable. The right kidney measures 11.9 cm in length. There is some sonolucency noted medial to the middle third of the right kidney measuring up to 1.74 cm in AP dimension. This is seen on the CT study from 04/07/2019 as well and is believed to represent a mild extrarenal pelvis. A similar finding is seen just medial to the middle third of the left kidney on the CT study from 04/07/2019 as well. The remainder of the right kidney appears unremarkable. Impression: 1. Moderate cholelithiasis is seen within a elongated and dilated gallbladder, as discussed above. I also note some thickening of the gallbladder wall measuring up to 5 mm in diameter. This could be due to acute or chronic cholecystitis. 2. No intrahepatic or extrahepatic biliary duct distention is seen. 3. There is a questionable 1 cm in diameter hyperechoic hemangioma versus focal fat density within the ligamentum teres within the left lobe of the liver. It is difficult to be absolutely confident that this represents the 9 mm hypoattenuated lesion seen in the left lobe of the liver on the CT study from 04/07/2019. 4. There is a mild extrarenal pelvis within the right kidney. No definite hydronephrosis is seen.
[2019-04-16] MEDS: SUBLIMAZE 100 MCG/2 ML IV PRN ×3 (11:25→23:32)
[2019-04-16] MEDS ORDERED: Quelicin Fliptop 200 MG/10 ML ONE (13:48)
[2019-04-16] MEDS ORDERED: DIPRIVAN 200 MG/20 ML IV ONE (13:48)
[2019-04-16] MEDS ORDERED: SUBLIMAZE 100 MCG/2 ML ONE ×3 (13:48→18:04)
[2019-04-16] MEDS ORDERED: Zemuron 100 MG/10 ML ONE ×3 (13:48→16:19)
[2019-04-16] MEDS ORDERED: Lactated Ringers 2,000 ML IV ONE (14:25)
[2019-04-16] MEDS ORDERED: DILAUDID 2 MG INJECTION ONE ×2 (14:26→18:04)
[2019-04-16] MEDS ORDERED: Decadron 4 MG INJ ONE (15:32)
[2019-04-16] MEDS ORDERED: Zofran 4 MG/2 ML VIAL ONE ×2 (15:32→18:05)
[2019-04-16] MEDS ORDERED: BRIDION 200MG/2ML IV ONE (15:32)
[2019-04-16] MEDS ORDERED: Compazine 10 MG/2 ML ONE (18:28)
[2019-04-16 18:49] LABS: Hemoglobin 12.1 gm/dl (12.0-16.0); Mean Cell Volume 92.7 fl (78-100); Mean Corpuscular Hemoglobin 29.5 pg (26-32); Mean Corpuscular Hgb Concent. 31.8 g/dl (32-36); Mean Platelet Volume 9.9 fl (6-9.5); Platelet Count 313 K/mm3 (150-450); Red Cell Distribution Width 12.1 % (11.5-14.0); White Blood Count 11.9 K/mm3 (4.0-10.5)
[2019-04-16 18:59] LABS: ALBUMIN 3.9 g/dL (3.5-5.0); ALKALINE PHOSPHATASE 120 U/L (38-126); BLOOD UREA NITROGEN 7 mg/dL (7-17); CHLORIDE 104 mmol/L (98-107); Calcium 8.7 mg/dL (8.4-10.2); Carbon Dioxide 28 mmol/L (22-30); Creatinine 1 0.67 mg/dL (0.52-1.04); Direct Bilirubin 0.4 mg/dL (0.0-0.4); Glucose 161 mg/dL (74-106); Potassium 4.1 mmol/L (3.5-5.1); SGOT/AST 125 U/L (14-36); SGPT/ALT 110 U/L (0-35); SODIUM 139 mmol/L (137-145); Total Protein 7.4 g/dL (6.3-8.2)
[2019-04-16] MEDS: Dextrose 5% -0.45 NaCl 1000 ML 1,000 ML IV SCH (19:43)
[2019-04-17] MEDS: Zosyn 3.375GM/100 Ml D5W 3.375 GM/100 ML IVPB IV SCH ×5 (00:31→23:34)
[2019-04-17] MEDS: SUBLIMAZE 100 MCG/2 ML IV PRN ×9 (02:37→22:04)
[2019-04-17] MEDS: Dextrose 5% -0.45 NaCl 1000 ML 1,000 ML IV SCH ×3 (04:12→19:55)
[2019-04-17 05:04] LABS: Hematocrit 33.3 % (35-47); Hemoglobin 10.7 gm/dl (12.0-16.0); Mean Cell Volume 92.5 fl (78-100); Mean Corpuscular Hemoglobin 29.7 pg (26-32); Mean Corpuscular Hgb Concent. 32.1 g/dl (32-36); Mean Platelet Volume 10.2 fl (6-9.5); Platelet Count 323 K/mm3 (150-450); Red Cell Distribution Width 12.1 % (11.5-14.0); White Blood Count 9.1 K/mm3 (4.0-10.5)
[2019-04-17 05:20] LABS: ALBUMIN 3.5 g/dL (3.5-5.0); ALKALINE PHOSPHATASE 86 U/L (38-126); ANION GAP 11.6 MEQ/L (5-15); BLOOD UREA NITROGEN 5 mg/dL (7-17); CHLORIDE 105 mmol/L (98-107); Calcium 8.7 mg/dL (8.4-10.2); Carbon Dioxide 28 mmol/L (22-30); Creatinine 1 0.64 mg/dL (0.52-1.04); Direct Bilirubin 0.3 mg/dL (0.0-0.4); Glucose 172 mg/dL (74-106); Potassium 3.5 mmol/L (3.5-5.1); SGOT/AST 83 U/L (14-36); SGPT/ALT 77 U/L (0-35); SODIUM 141 mmol/L (137-145); Total Protein 6.7 g/dL (6.3-8.2)
[2019-04-17] MEDS ORDERED: TYLENOL 325 MG PO PRN (07:01)
[2019-04-17] MEDS ORDERED: FEVERALL 650 MG RC PRN (07:02)
[2019-04-17] MEDS ORDERED: Zofran 4 MG/2 ML VIAL IVIM PRN (07:15)
--- NOTE | 2019-04-17 08:02 | CONS ---
DATE OF CONSULT: 04/16/2019 HISTORY: This is a patient who was seen by my partner yesterday. She states that she recently presented over the past week due to a gallbladder attack. She was seen in the emergency room and it was recommended for her to have her gallbladder removed. However, her pain improved while she was in the emergency room and she wanted to go home and see how she did and follow up as an outpatient. However while she was out of the hospital her pain increased in severity. She worked Tuesday night and went to bed around 0830 hours in the morning, woke up around 1230 hours. She had extremely severe pain in the right side of her abdomen and it radiated to her back and so she represented to the hospital to have her gallbladder re-evaluated. Past medical, past surgical history as well as medications and allergies have all been reviewed with the patient. She has had three carpal tunnel surgeries, partial hysterectomy, two sections and appendectomy. Medically she is quite healthy per her report. ALLERGIES: MORPHINE. PHYSICAL EXAMINATION: GENERAL: No acute distress. No jaundice. CVS: Regular rate and rhythm. PULMONARY: Nonlabored. ABDOMEN: Right side of her abdomen is exquisitely tender with localized rebound. The remainder of her abdomen is not tender. She is not significantly distended and the abdomen is soft. EXTREMITIES: Normal. LAB DATA AND TESTS: Her laboratory studies were all reviewed and today her AST and ALT are slightly elevated. Her creatinine and white blood cell count are normal. Her hemoglobin is 11.9. Her bilirubin, amylase, lipase are all normal. I ordered an ultrasound for the patient and this came back with a distended gallbladder extremely large for the patient's size and also thickened, normal sized bile ducts. ASSESSMENT: I discussed with the patient in detail the procedure laparoscopic possible open cholecystectomy and I did discuss with her that this did appear to be a significantly inflamed gallbladder and there would be a chance of needing drained. There would be a chance that she would need to have a prolonged hospital course due to any of a number of issues that could arise with significant acute cholecystitis including but not limited to bleeding, bile leak, bile duct complications, retained stones, infection, other organ involvement due to inflammation, hernia, etc. and the patient understands. She would absolutely like to proceed with surgery today. She has been NPO. I did also re-examine and discuss with her in the preoperative area any remaining questions and these were all answered before bringing her back to surgery.
[2019-04-17] MEDS: Sodium Chloride 0.9% 1000 ML 1,000 ML IV SCH ×2 (08:07→17:31)
[2019-04-17] MEDS: NO ANTICOAGULANTS OR BLOOD THINNERS/ASPIRIN MC SCH ×2 (08:07→17:32)
--- NOTE | 2019-04-17 08:58 | OP ---
PROCEDURE DATE/TIME: 04/16/2019 1350 PREOPERATIVE DIAGNOSIS: Acute cholecystitis with cholelithiasis. POSTOPERATIVE DIAGNOSIS: Acute cholecystitis with cholelithiasis and hydrops gallbladder. PROCEDURE: Laparoscopic cholecystectomy (difficult). PROCEDURE PERFORMED BY: Marielena Garza M.D. DIGITAL PRODUCT SPECIALIST: Jean Mansfield M.D. COMPLICATIONS: None. ESTIMATED BLOOD LOSS: Approximately 500 cc. ANESTHESIA: General. SPECIMEN: Gallbladder and gallbladder fluid for culture. HISTORY: This is a 58 year-old female. Please see my other note for all of the details. She presented with significant acute cholecystitis and a very distended gallbladder with wall thickening and stones. The patient was seen in the preoperative and any remaining questions discussed. All risks, benefits, alternatives have been discussed with her in detail and with her family as well and nursing present. DESCRIPTION OF PROCEDURE: She was then brought back to the operative suite. Anesthesia was induced. She was prepped and draped in the usual sterile fashion. A complete time out was performed. An orogastric tube inserted and the stomach desufflated. An incision made in the left upper quadrant. A Veress needle was used to access the abdominal cavity with good initial low insufflatory pressure. Abdomen easily insufflated. A 5 mm optical port placed at this site under direct visualization. No injuries identified. An 11 port was then placed at the umbilicus at the inferior inspect through prior incision all under visualization. Two - 5 ports in the right upper quadrant. The gallbladder was immediately identified, very distended, very long, very large compared to the patient's size. It was approximately 14 to 15 cm in length. I could not grab it. The immediate surface of the gallbladder visible was very thick, very firm. I did have to gently elevate the gallbladder and liver to carefully take down omental adhesions. Once we did this we had enough of the gallbladder exposed that we were able to place a needle into the gallbladder and suction out approximately 60 cc of hydropic fluid which was sent for culture. I then was able after sucking this amount of fluid to grasp the gallbladder. Once we were able to grasp the gallbladder we were able to elevate it and the patient had very significant adhesions from her stomach and duodenum overlying the entire remainder of the gallbladder. This portion of the gallbladder looked even more inflamed and very thick. We continued our dissection down along the full length of the gallbladder very meticulously and carefully keeping the stomach and duodenum off of the gallbladder insuring that we did not violate the stomach or duodenum in doing so. Once we did this we further retracted the gallbladder and started our gallbladder dissection. Again the gallbladder was thick, it was firm throughout even with the fluid decompression. The severity of this scar was so thick and involved that the planes were very distorted because of this. I very slowly and meticulously used the suction, hydrodissection, Bovie cautery and Kittner to very carefully and meticulously start to dissect out the critical aspect of the case. I had to go back and forth from left and right side to slowly free up millimeter by millimeter the gallbladder on either side to get more mobility and as I did this I was able to identify the region of the cystic artery and get around this. Once I was able to do this I was eventually able to identify the region of the cystic duct and start to get around this. Dr. Mansfield came into the case to help assist due to the difficulty of the case. At this time we were then able to get around the region of the neck of the gallbladder and take our dissection up towards the body of the gallbladder giving us a free and safe space to place a stapler right at the neck of the gallbladder. It appeared that the gallbladder had a short cystic duct very close to what appeared to be the common duct. She also had her right hepatic artery welded and stuck onto the gallbladder which I did meticulously dissect and allow to fall down and away from our field so that this is not violated at all. Throughout the entire case the patient's gallbladder was so welded to the liver that it was continuously raw and oozing. We did not have any major squirting vessel at all throughout the entire case. We did not have any significant localized bleeding throughout the entire case. However there was constant oozing from all raw surfaces of the entire length of the gallbladder and everything it touched was extremely raw and inflamed. Once we identified a full critical view, we could see the cystic artery entering the gallbladder. We could see the cystic duct entering the neck of the gallbladder. We cleared this up many centimeters up the gallbladder to insure that there were no other obvious structures entering the gallbladder besides these two. Once this was done, I upsized to a 12 port in the left upper quadrant and we were able to place the white load vascular stapler across the junction of the neck of the cystic duct staying away from what appeared to be the junction with the common duct and staying away from the hepatic artery. We stapled this right along the junction of the cystic duct and gallbladder. Our staple line looked excellent. I did not see any issues or concerns here. Everything was hemostatic. We clipped our artery and ligated this immediately prior to stapling and this also looked excellent. Everything was hemostatic. There was no bile leaking either. I did place Surgicel as we went along during our dissection on all the raw places to help control the oozing from all of the raw surfaces and then we very meticulously dissected the gallbladder off of the liver bed. It was somewhat intrahepatic and again as we continued our dissection this was extremely difficult, very welded, very poor planes due to the severity of the inflammation but we were able to fully remove the gallbladder. I did not have to leave any gallbladder behind. We were able to fully remove this and then place this into a laparoscopic bag. We then attempted extraction out of the left upper quadrant site. Of course due to the very large stones and the extremely large size and thickness of the gallbladder, I did have to increase my incision size and spread the fascia. We did this and then we spent quite a bit of time crushing the stones and extracting them while protecting the skin and the abdominal cavity by using the bag to contain the entire gallbladder and all stones within the bag during this process and I did have to crush the stones and continuously remove pieces to allow this to finally be extracted through a laparoscopic incision. Once this was done, I closed this incision with interrupted and figure-of-8, 0 Vicryl sutures in an open fashion leaving our lateral sutures free so we could replace our trocar and I placed hemostat to tie the ends. We re-inspected our surgical site. Everything looked hemostatic. I did leave a piece of Surgicel behind to insure continued hemostasis due to the severity of inflammation and the raw surfaces and this looked very good. We re-inspected our staple line. Our staple line looked excellent. I irrigated copiously. I suspect we lost approximately 500 cc of blood during this case due to the inflammation and raw surfaces. The stomach and duodenum looked good. Our surgical sites all looked good. I then closed the 11 port site with 0 Vicryl laparoscopic suture. We placed our drain through our lowest right lower quadrant incision and placed it under the liver and sutures had been placed. We then tied our left upper quadrant incision. We took a final look and survey. I did not see anything concerning at this time and then I desufflated the abdomen and removed our final port. We irrigated the wound and then we closed with buried 4-0 Monocryl at the umbilicus and upper right upper quadrant incision and then I closed the left upper quadrant incision after copious irrigation with vertical mattress nylon sutures to allow drainage in between the sutures if necessary due to the significant inflammation of the gallbladder. Sterile dressings were placed. The patient tolerated the very procedure well. I have ordered postoperative laboratory studies on her. I have discussed with her family all significant results and our plan of care. The plan will be to check her labs daily. She is going to be NPO except for sips. We are going to continue her ESTEE drain and I expect a slower hospital recovery due to the extensive severity of the inflammation of her gallbladder. We will also keep her on antibiotics and await the final cultures.
[2019-04-18] MEDS: SUBLIMAZE 100 MCG/2 ML IV PRN ×5 (00:12→12:30)
[2019-04-18] MEDS: Dextrose 5% -0.45 NaCl 1000 ML 1,000 ML IV SCH ×2 (04:12→13:22)
[2019-04-18 04:56] LABS: Hemoglobin 9.9 gm/dl (12.0-16.0); Mean Cell Volume 93.1 fl (78-100); Mean Corpuscular Hemoglobin 29.7 pg (26-32); Mean Corpuscular Hgb Concent. 31.9 g/dl (32-36); Mean Platelet Volume 10.3 fl (6-9.5); Platelet Count 311 K/mm3 (150-450); Red Blood Count 3.33 M/mm3 (4.1-5.4); White Blood Count 7.1 K/mm3 (4.0-10.5)
[2019-04-18 05:03] LABS: ALBUMIN 3.3 g/dL (3.5-5.0); ALKALINE PHOSPHATASE 84 U/L (38-126); ANION GAP 10.8 MEQ/L (5-15); CHLORIDE 104 mmol/L (98-107); Calcium 8.7 mg/dL (8.4-10.2); Carbon Dioxide 30 mmol/L (22-30); Creatinine 1 0.58 mg/dL (0.52-1.04); Direct Bilirubin 0.3 mg/dL (0.0-0.4); Glucose 110 mg/dL (74-106); Potassium 3.3 mmol/L (3.5-5.1); SGOT/AST 46 U/L (14-36); SGPT/ALT 69 U/L (0-35); SODIUM 142 mmol/L (137-145); Total Protein 6.4 g/dL (6.3-8.2)
[2019-04-18 05:04] LABS: BLOOD UREA NITROGEN < 2 mg/dL (7-17)
[2019-04-18] MEDS: Zosyn 3.375GM/100 Ml D5W 3.375 GM/100 ML IVPB IV SCH ×2 (06:18→12:37)
--- NOTE | 2019-04-18 08:53 | PCM.NOTE ---
Date and Time: 04/18/1930 OBJECTIVE DATA Vital Signs: Vital Signs - 24 hr Temp Pulse Resp BP Pulse Ox 04/18/19 08:00 98.2 F 91 H 16 124/68 95 04/18/19 04:00 98.1 F 95 H 16 120/73 96 04/17/19 23:46 98.3 F 86 18 128/71 96 04/17/19 20:15 96 04/17/19 20:00 98.1 F 80 16 135/68 99 04/17/19 16:26 98.1 F 102 H 16 130/58 96 Pain Assessment - Last Documented Pain Intensity 8 Pain Scale Used 0-10 Pain Scale Intake and Output: Intake & Output 04/15/19 04/16/19 04/17/19 04/18/19 11:59 11:59 11:59 11:59 Intake Total 2734 2450 3497 Output Total 650 2080 3488 Balance 2084 370 9 Weight 58.513 kg 57 kg 65.7 kg 65 kg Lab Results: Lab Results-Last 24 Hours 04/18/19 04/18/19 Range/Units 04:15 04:15 WBC 7.1 (4.0-10.5) K/mm3 RBC 3.33 L (4.1-5.4) M/mm3 Hgb 9.9 L (12.0-16.0) gm/dl Hct 31.0 L (35-47) % MCV 93.1 (78-100) fl MCH 29.7 (26-32) pg MCHC 31.9 L (32-36) g/dl RDW 12.0 (11.5-14.0) % Plt Count 311 (150-450) K/mm3 MPV 10.3 H (6-9.5) fl Sodium 142 (137-145) mmol/L Potassium 3.3 L (3.5-5.1) mmol/L Chloride 104 (98-107) mmol/L Carbon Dioxide 30 (22-30) mmol/L Anion Gap 10.8 (5-15) MEQ/L BUN < 2 L (7-17) mg/dL Creatinine 0.58 (0.52-1.04) mg/dL Estimated GFR > 60.0 ML/MIN Glucose 110 H (74-106) mg/dL Calcium 8.7 (8.4-10.2) mg/dL Total Bilirubin 0.30 (0.2-1.3) mg/dL Direct Bilirubin 0.3 (0.0-0.4) mg/dL AST 46 H (14-36) U/L ALT 69 H (0-35) U/L Alkaline Phosphatase 84 (38-126) U/L Serum Total Protein 6.4 (6.3-8.2) g/dL Albumin 3.3 L (3.5-5.0) g/dL Radiology Exams: Radiology Procedures Category Date Time Status GALLBLADDER [US] Stat Exams 04/16/19 09:10 Completed Assessment/Plan (1) Cholecystitis with cholelithiasis Current Visit: Yes Status: Acute (2) Headache Current Visit: Yes Status: Acute Code(s): R51 - HEADACHE (3) RUQ abdominal pain Current Visit: Yes Status: Acute Code(s): R10.11 - RIGHT UPPER QUADRANT PAIN (4) Acute cholecystitis due to biliary calculus Current Visit: No Status: Acute Code(s): K80.00 - CALCULUS OF GALLBLADDER W ACUTE CHOLECYST W/O OBSTRUCTION
[2019-04-18] MEDS: NORCO 5/325 MG PO PRN ×3 (09:26→17:26)
--- NOTE | 2019-04-18 16:06 | PCM.DS ---
Discharge Summary Date of Admission: 04/16/19 13:50 Date of Discharge: 04/18/19 Admitting Physician: KOKO VALDES MD Consults: Consults on Case 04/15/19 12:14 Consult Surgery ROUTINE Primary Care Provider: NO FAMILY DOCTOR Allergies Allergies morphine Allergy (Verified 04/15/19 08:54) Hospital Summary - Hospital Course Hospital Course: Ms PAZ is a 58 year old female was admitted from ER for cholecystitis. Patient reports that she was having severe abdominal pain last week and went to the ER. She was told she needed to have gallbladder surgery at that time but she declined and wanted to try to alleviate her symptoms with diet modification. Patient reports that she then started having severe abdominal pain on tuesday and went to the ER. They again recommended surgery which she was agreeable to. Patient reports that she has had some nausea and vomiting. Denies diarrhea or constipation. Patient reports that she is not on any routine home meds. Patient reports this am she has a severe headache. She denies hx of migraines. She stated that the headache she has was making her nauseated. Dr Jack Graza came and evaluated the patient on Tuesday night and discussed plans for surgery to be done tomorrow. Patient was having worsening headache on diluadid and was transitioned to fentanyl which she tolerated. Patient was then taken to surgery Tuesday afternoon. Please refer to Surgery for op note. Patient tolerated procedure well but was still requiring pain medication and had not advanced her diet yet so she was kept for another day to make sure her nausea and pain were well controlled and that she tolerate her diet. Patient had a drain placed during her lap bruno and will need to keep that in place until she sees Dr Garza for follow up. It was felt that the patient could go safely go home today - Vitals & Intake/Output Vital Signs: Vital Signs Temperature 98.2 F 04/18/19 12:00 Pulse Rate 97 H 04/18/19 12:00 Respiratory Rate 16 04/18/19 12:00 Blood Pressure 108/53 04/18/19 12:00 O2 Sat by Pulse Oximetry 97 04/18/19 12:00 Oxygen-Last Documented O2 Percentage 1 Liter = 24% Intake & Output: Intake & Output 04/16/19 04/17/19 04/18/19 04/19/19 11:59 11:59 11:59 11:59 Intake Total 2734 2450 3497 Output Total 231 2080 3488 Balance 2084 370 9 Weight 57 kg 65.7 kg 65 kg - Lab Result Diagrams: 04/18/19 04:15 04/18/19 04:15 Lab Results-Last 24 Hrs: Lab Results-Last 24 Hours 04/18/19 04/18/19 Range/Units 04:15 04:15 WBC 7.1 (4.0-10.5) K/mm3 RBC 3.33 L (4.1-5.4) M/mm3 Hgb 9.9 L (12.0-16.0) gm/dl Hct 31.0 L (35-47) % MCV 93.1 (78-100) fl MCH 29.7 (26-32) pg MCHC 31.9 L (32-36) g/dl RDW 12.0 (11.5-14.0) % Plt Count 311 (150-450) K/mm3 MPV 10.3 H (6-9.5) fl Sodium 142 (137-145) mmol/L Potassium 3.3 L (3.5-5.1) mmol/L Chloride 104 (98-107) mmol/L Carbon Dioxide 30 (22-30) mmol/L Anion Gap 10.8 (5-15) MEQ/L BUN < 2 L (7-17) mg/dL Creatinine 0.58 (0.52-1.04) mg/dL Estimated GFR > 60.0 ML/MIN Glucose 110 H (74-106) mg/dL Calcium 8.7 (8.4-10.2) mg/dL Total Bilirubin 0.30 (0.2-1.3) mg/dL Direct Bilirubin 0.3 (0.0-0.4) mg/dL AST 46 H (14-36) U/L ALT 69 H (0-35) U/L Alkaline Phosphatase 84 (38-126) U/L Serum Total Protein 6.4 (6.3-8.2) g/dL Albumin 3.3 L (3.5-5.0) g/dL Micro Results-Entire Visit: Microbiology 04/16/19 14:10 Wound Culture - Preliminary Gallbladder NO GROWTH TO DATE Discharge Exam General Appearance: mild distress Neurologic Exam: alert, oriented x 3, cooperative, normal mood/affect Eye Exam: eyes nml inspection Ears, Nose, Throat Exam: moist mucous membranes Neck Exam: normal inspection Respiratory Exam: normal breath sounds Cardiovascular Exam: regular rate/rhythm, normal heart sounds, No murmur, No friction rub, No gallop Gastrointestinal/Abdomen Exam: soft, distention, other (Drain in place R side abdomen with blood tinged serosanginous fluid approx 5 ml. Steri strips and dressings were intact with scant drainage. Abdomen slightly distended from gas used during procedure. Abdomen is tender to palpation upper quadrants. Hypoactive bowel sounds.) Back Exam: normal inspection Extremity Exam: normal inspection Skin Exam: normal color, warm, dry, No rash Final Diagnosis/Problem List - Final Discharge Diagnosis/Problem (1) Cholecystitis with cholelithiasis Current Visit: Yes Status: Acute Assessment & Plan: Patient had surgery for cholecystitis and cholelithiasis. Patient was given pain medication to manage the pain and was also given antibiotics. She will be discharged on pain medication. She has a ESTEE drain that will need to stay in place until seen by surgery. She was told the steri strips will fall off on their own. She was reporting limited ambulation due to pain and I told her she needs to discuss with Dr Garza about when she can return to work. (2) Headache Current Visit: Yes Status: Resolved Assessment & Plan: Side effect of pain medication which was DC. Code(s): R51 - HEADACHE (3) RUQ abdominal pain Current Visit: Yes Status: Acute Assessment & Plan: Present but improved since surgery but patient still has some abdominal tenderness Code(s): R10.11 - RIGHT UPPER QUADRANT PAIN (4) Acute cholecystitis due to biliary calculus Current Visit: No Status: Acute Code(s): K80.00 - CALCULUS OF GALLBLADDER W ACUTE CHOLECYST W/O OBSTRUCTION - Discharge Disposition: Home, Self-Care Condition: Stable Prescriptions: New Hydrocodone/APAP 5-325 Tab^^^ [[place] 5-325 Tablet^^^] 1 tab PO Q4HPRN PRN # 25 tablet MDD 6 PRN Reason: Pain Additional Instructions: Patient is to leave drain in until seen by Dr Sara Garza on tuesday. Follow up with: KOKO VALDES MD [ACTIVE STAFF] - 04/25/19 10:30 am LUL GARZA MD [ACTIVE STAFF] - 04/20/19 12:20 pm
--- NOTE | 2019-04-18 16:12 | PCM.DCORD ---
- Discharge Discharge Date: 04/18/19 Disposition: Home, Self-Care Condition: Stable Prescriptions: New Hydrocodone/APAP 5-325 Tab^^^ [[place] 5-325 Tablet^^^] 1 tab PO Q4HPRN PRN # 25 tablet MDD 6 PRN Reason: Pain Additional Instructions: Patient is to leave drain in until seen by Dr Sara Garza on tuesday. Follow up with: KOKO VALDES MD [ACTIVE STAFF] - 1 Week LUL GARZA MD [ACTIVE STAFF] - 04/20/19 12:20 pm
[2019-04-18 17:25] VITALS: BP 129/60; PULSE 92; O2SAT 96
== END 2019-04-18 17:46 | disposition home or self-care (01) | DRG 418 ==
LOC: ED 08:40 → MED SURG 11:45 → ED 04-16 08:40 → MED SURG 04-16 11:45 → OBSVTOIN 04-16 13:50
PROVIDERS: ADMIT Family Medicine; ATTEND Family Medicine
PROC: 0FT44ZZ Resection of Gallbladder, Percutaneous Endoscopic Approach (ICD-10-PCS; principal; 2019-04-16)
DX: K80.60 Calculus of gallbladder and bile duct with cholecystitis, unspecified, without obstruction (principal); K82.1 Hydrops of gallbladder; R51 Headache; R10.11 Right upper quadrant pain
CPT/HCPCS: 36000; 36415; 76705; 80048; 80053; 80076; 81001; 82150; 83605; 83690; 85025; 85027; 87070; 88304; 94760; 96360; 96374; 96375; 99285; G0378; J0330; J1100; J1170; J2175; J2405; J2543; J2550; J2704; J3010; A9270-GY

== ENCOUNTER 2019-06-12 15:16 | Emergency (ER) | payer SELFPAY ==
--- NOTE | 2019-06-12 15:32 | ERPHSYRPT ---
- History of Present Illness Time Seen by Provider: 06/12/19 15:21 Historian: patient, family Exam Limitations: no limitations Physician History: GB removal in Mid April. Complication during surgery with the GB attached to liver. Prolonged surgery. bile draining from ESTEE drain so eval to GI specialist Dr. Lux. Stent placed in duct. Pt otherwise tolerated well. Stent removed 3 weeks ago. Symptoms of epigastric burning intermittently. Called Dr. Garza who advised to go to ER. Timing/Duration: week(s) (3), intermittent Activities at Onset: activity Quality: burning Abdominal Pain Onset Location: epigastric Pain Radiation: no radiation Severity of Pain-Max: severe Severity of Pain-Current: none Modifying Factors: Improves With: eating, exercise Associated Symptoms: nausea Previous symptoms: same symptoms as today Allergies/Adverse Reactions: hydromorphone [From Dilaudid] Allergy (Verified 06/12/19 15:39) morphine Allergy (Verified 06/12/19 15:39) Home Medications: No Reportable Medications [No Reported Medications] 06/12/19 [History] Hx Tetanus, Diphtheria Vaccination/Date Given: No Hx Influenza Vaccination/Date Given: Yes Hx Pneumococcal Vaccination/Date Given: No - Review of Systems Constitutional: No Fever, No Chills Eyes: No Symptoms Ears, Nose, & Throat: No Symptoms Respiratory: No Cough, No Dyspnea Cardiac: No Chest Pain, No Edema, No Syncope Abdominal/Gastrointestinal: Abdominal Pain, Nausea, No Vomiting, No Diarrhea, No Constipation, No Hematemesis, No Hematochezia, No Melena Genitourinary Symptoms: No Dysuria Musculoskeletal: No Back Pain, No Neck Pain Skin: No Rash Neurological: No Dizziness, No Focal Weakness, No Sensory Changes Psychological: No Symptoms Endocrine: No Symptoms All Other Systems: Reviewed and Negative - Past Medical History Pertinent Past Medical History: No Neurological History: No Pertinent History ENT History: No Pertinent History Cardiac History: No Pertinent History Respiratory History: No Pertinent History Endocrine Medical History: No Pertinent History Musculoskeletal History: Arthritis GI Medical History: No Pertinent History History: No Pertinent History Psycho-Social History: No Pertinent History Female Reproductive Disorders: Abnormal Uterine Bleeding, Menstrual Problems - Past Surgical History Past Surgical History: Yes Neuro Surgical History: No Pertinent History Cardiac: No Pertinent History Respiratory: No Pertinent History Gastrointestinal: No Pertinent History Genitourinary: No Pertinent History Musculoskeletal: No Pertinent History Female Surgical History: No Pertinent History Other Surgical History: carpal tunnel - Social History Smoking Status: Former smoker Exposure to second hand smoke: No Drug Use: none Patient Lives Alone: No Significant Family History: no pertinent family hx - Nursing Vital Signs Nursing Vital Signs: Initial Vital Signs Temperature 97.8 F 06/12/19 15:22 Pulse Rate 114 H 06/12/19 15:22 Blood Pressure 154/89 06/12/19 15:22 O2 Sat by Pulse Oximetry 99 06/12/19 15:22 Pain Scale Pain Intensity [Medial Chest] 10 Pain Intensity 10 - Physical Exam General Appearance: no apparent distress, alert Eye Exam: PERRL/EOMI, eyes nml inspection Ears, Nose, Throat Exam: normal ENT inspection, pharynx normal, moist mucous membranes Neck Exam: normal inspection, non-tender, supple, full range of motion Respiratory Exam: normal breath sounds, lungs clear, No respiratory distress Cardiovascular Exam: regular rate/rhythm, normal heart sounds Gastrointestinal/Abdomen Exam: soft, No tenderness, No mass, No rebound, No organomegaly Back Exam: normal inspection, normal range of motion, No CVA tenderness, No vertebral tenderness Extremity Exam: normal inspection, normal range of motion, pelvis stable Neurologic Exam: alert, oriented x 3, cooperative, normal mood/affect, nml cerebellar function, sensation nml, No motor deficits Skin Exam: normal color, warm, dry Lymphatic Exam: No adenopathy - Course Nursing assessment & vital signs reviewed: Yes EKG Interpreted by Me: RATE (84), Sinus Rhythm, NORMAL AXIS, NORMAL INTERVALS, NORMAL QRS, NORMAL ST-T Ordered Tests: Active Orders 24 hr Category Date Time Status EKG-ER Only STAT Care 06/12/19 15:41 Active IV Insertion STAT Care 06/12/19 15:41 Active Oxygen-ED Only Nasal Cannula 2 lpm Care 06/12/19 18:25 Active ABDOMEN AND PELVIS W CONTRAST [CT] Stat Exams 06/12/19 15:42 Completed AMYLASE Stat Lab 06/12/19 16:00 Completed BMP Stat Lab 06/12/19 16:00 Completed CBC W DIFF Stat Lab 06/12/19 16:00 Completed Hepatic Function Panel Stat Lab 06/12/19 16:00 Completed LIPASE Stat Lab 06/12/19 16:00 Completed TROPONIN Q3H Lab 06/12/19 17:54 Completed TROPONIN Stat Lab 06/12/19 16:00 Completed UA W/RFX UR CULTURE Stat Lab 06/12/19 18:24 Completed Medication Summary Generic Name Dose Route Start Last Admin Trade Name Gemini PRN Reason Stop Dose Admin Sodium Chloride 1,000 mls @ 100 mls/hr 06/12/19 15:45 06/12/19 16:07 Sodium Chloride 0.9% 1000 Ml IV 07/12/19 15:44 100 mls/hr .Q10H SHUBHAM Administration Discontinued Medications Generic Name Dose Route Start Last Admin Trade Name Gemini PRN Reason Stop Dose Admin Al Hydrox/Mg Hydrox/Simethicone Confirm 06/12/19 16:37 Maalox Es 30 Ml Unit Dose Administered 06/12/19 16:38 Dose 30 ml .ROUTE .STK-MED ONE Diphenoxylate HCl/Atropine 1 tablet 06/12/19 18:19 06/12/19 18:23 Lomotil PO 06/12/19 18:20 1 tablet STAT ONE Administration Diphenoxylate HCl/Atropine Confirm 06/12/19 18:22 Lomotil Administered 06/12/19 18:23 Dose 1 tablet .ROUTE .STK-MED ONE Lidocaine HCl Confirm 06/12/19 16:36 Xylocaine Hcl Viscous * Administered 06/12/19 16:37 Dose 15 ml .ROUTE .STK-MED ONE Magnesium Hydroxide 45 ml 06/12/19 16:49 06/12/19 16:49 Gi Cocktail 45 Ml (Maalox/Lidocaine) PO 06/12/19 16:50 45 ml STAT ONE Administration Nitroglycerin 0.4 mg 06/12/19 18:24 06/12/19 18:27 Nitrostat 0.4 Mg (Ed) SL 06/12/19 18:25 0.4 mg STAT ONE Administration Pantoprazole Sodium 40 mg 06/12/19 15:41 06/12/19 16:07 Protonix 40 Mg Iv IV 06/12/19 15:42 40 mg STAT ONE Administration Pantoprazole Sodium Confirm 06/12/19 16:05 Protonix 40 Mg Iv Administered 06/12/19 16:06 Dose 40 mg IV .STK-MED ONE Lab/Rad Data: Laboratory Result Diagrams 06/12/19 16:00 06/12/19 16:00 Laboratory Results 06/12/19 06/12/19 06/12/19 Range/Units 18:24 17:54 16:00 WBC (4.0-10.5) K/mm3 RBC (4.1-5.4) M/mm3 Hgb (12.0-16.0) gm/dl Hct (35-47) % MCV (78-100) fl MCH (26-32) pg MCHC (32-36) g/dl RDW (11.5-14.0) % Plt Count (150-450) K/mm3 MPV (7.5-11.0) fl Gran % (36.0-66.0) % Eos # (Auto) (0-0.5) Absolute Lymphs (auto) (1.0-4.6) Absolute Monos (auto) (0.0-1.3) Lymphocytes % (24.0-44.0) % Monocytes % (0.0-12.0) % Eosinophils % (0.00-5.0) % Basophils % (0.0-0.4) % Absolute Granulocytes (1.4-6.9) Basophils # (0-0.4) Sodium (137-145) mmol/L Potassium (3.5-5.1) mmol/L Chloride (98-107) mmol/L Carbon Dioxide (22-30) mmol/L Anion Gap (5-15) MEQ/L BUN (7-17) mg/dL Creatinine (0.52-1.04) mg/dL Estimated GFR ML/MIN Glucose (74-106) mg/dL Calcium (8.4-10.2) mg/dL Total Bilirubin (0.2-1.3) mg/dL Direct Bilirubin (0.0-0.4) mg/dL AST (14-36) U/L ALT (0-35) U/L Alkaline Phosphatase (38-126) U/L Troponin I 0.093 H* 0.105 H* (0.000-0.034) ng/mL Serum Total Protein (6.3-8.2) g/dL Albumin (3.5-5.0) g/dL Amylase (30-110) U/L Lipase (23-300) U/L Urine Color STRAW (YELLOW) Urine Appearance CLEAR (CLEAR) Urine pH 8.0 (5-6) Ur Specific [place] 1.053 (1.005-1.025) Urine Protein NEGATIVE (Negative) Urine Ketones NEGATIVE (NEGATIVE) Urine Blood SMALL (0-5) Dany/ul Urine Nitrite NEGATIVE (NEGATIVE) Urine Bilirubin NEGATIVE (NEGATIVE) Urine Urobilinogen NEGATIVE (0-1) mg/dL Ur Leukocyte Esterase NEGATIVE (NEGATIVE) Urine WBC (Auto) NONE (0-5) /HPF Urine RBC (Auto) 6-10 (0-2) /HPF U Epithel Cells (Auto) NONE (FEW) /HPF Urine Bacteria (Auto) NONE (NEGATIVE) /HPF Urine Mucus (Auto) SLIGHT (NEGATIVE) /HPF Urine Culture Reflexed NO (NO) Urine Glucose NEGATIVE (NEGATIVE) mg/dL 06/12/19 06/12/19 Range/Units 16:00 16:00 WBC 7.7 (4.0-10.5) K/mm3 RBC 4.59 (4.1-5.4) M/mm3 Hgb 13.4 (12.0-16.0) gm/dl Hct 40.9 (35-47) % MCV 89.1 (78-100) fl MCH 29.2 (26-32) pg MCHC 32.8 (32-36) g/dl RDW 12.8 (11.5-14.0) % Plt Count 247 (150-450) K/mm3 MPV 11.0 (7.5-11.0) fl Gran % 67.7 H (36.0-66.0) % Eos # (Auto) 0.23 (0-0.5) Absolute Lymphs (auto) 1.63 (1.0-4.6) Absolute Monos (auto) 0.61 (0.0-1.3) Lymphocytes % 21.1 L (24.0-44.0) % Monocytes % 7.9 (0.0-12.0) % Eosinophils % 3.0 (0.00-5.0) % Basophils % 0.3 (0.0-0.4) % Absolute Granulocytes 5.25 (1.4-6.9) Basophils # 0.02 (0-0.4) Sodium 139 (137-145) mmol/L Potassium 4.4 (3.5-5.1) mmol/L Chloride 104 (98-107) mmol/L Carbon Dioxide 26 (22-30) mmol/L Anion Gap 13.3 (5-15) MEQ/L BUN 14 (7-17) mg/dL Creatinine 0.53 (0.52-1.04) mg/dL Estimated GFR > 60.0 ML/MIN Glucose 101 (74-106) mg/dL Calcium 9.2 (8.4-10.2) mg/dL Total Bilirubin 0.60 (0.2-1.3) mg/dL Direct Bilirubin 0.3 (0.0-0.4) mg/dL AST 33 (14-36) U/L ALT 24 (0-35) U/L Alkaline Phosphatase 102 (38-126) U/L Troponin I (0.000-0.034) ng/mL Serum Total Protein 8.0 (6.3-8.2) g/dL Albumin 4.7 (3.5-5.0) g/dL Amylase 69 (30-110) U/L Lipase 136 (23-300) U/L Urine Color (YELLOW) Urine Appearance (CLEAR) Urine pH (5-6) Ur Specific [place] (1.005-1.025) Urine Protein (Negative) Urine Ketones (NEGATIVE) Urine Blood (0-5) Dany/ul Urine Nitrite (NEGATIVE) Urine Bilirubin (NEGATIVE) Urine Urobilinogen (0-1) mg/dL Ur Leukocyte Esterase (NEGATIVE) Urine WBC (Auto) (0-5) /HPF Urine RBC (Auto) (0-2) /HPF U Epithel Cells (Auto) (FEW) /HPF Urine Bacteria (Auto) (NEGATIVE) /HPF Urine Mucus (Auto) (NEGATIVE) /HPF Urine Culture Reflexed (NO) Urine Glucose (NEGATIVE) mg/dL - Progress Progress: improved Progress Note: 06/12/19 18:48 Pt stable at arrival. Few episodes in ER of which the first event was relieved by GI cocktail but took a bit of time. Second event was immediately relieved with nitro SL x 1 VS stable throughout. D/w Dr. flores-proabably "Troponin leak" secondary to bowel surgery. Will need work up regardless. Send to ER. Admit to hospitalist. 06/12/19 18:55 Pt accepted to [facility] ER via auto-accept through [facility] transfer center. Discussed with Dr.: Other (Dr. Flores at [facility], cardiology, will see pt as consult. Send to ER. Admit to hospitalist.) Counseled pt/family regarding: lab results, diagnosis, rad results - Departure Departure Disposition: Transfer ([facility] ) Clinical Impression: Elevated troponin Chest pain Qualifiers: Chest pain type: unspecified Qualified Code(s): R07.9 - Chest pain, unspecified Condition: Stable Critical Care Time: Yes Critical Care Time(excluding separately billable procedures): Critical 30-74 mins Referrals: DOCTOR,NO FAMILY [Primary Care Provider] -
[2019-06-12 15:39] VITALS: O2SAT 99
[2019-06-12] MEDS ORDERED: PROTONIX 40 MG IV IV ONE ×2 (15:41→16:05)
[2019-06-12] MEDS ORDERED: Sodium Chloride 0.9% 1000 ML 1,000 ML IV SCH (15:45)
[2019-06-12] MEDS ORDERED: Sodium Chloride 0.9% 1000 ML 1,000 ML ONE (16:05)
[2019-06-12 16:13] LABS: Absolute Neutrophil Ct (ANC) 5.25 (1.4-6.9); BASOPHIL % 0.3 % (0.0-0.4); Basophil (Absolute #) 0.02 (0-0.4); Eosinophil (Absolute #) 0.23 (0-0.5); Hematocrit 40.9 % (35-47); Hemoglobin 13.4 gm/dl (12.0-16.0); Lymphocyte (Absolute #) 1.63 (1.0-4.6); Lymphocytes % 21.1 % (24.0-44.0); Mean Cell Volume 89.1 fl (78-100); Mean Corpuscular Hemoglobin 29.2 pg (26-32); Mean Corpuscular Hgb Concent. 32.8 g/dl (32-36); Monocyte (Absolute #) 0.61 (0.0-1.3); Monocytes % 7.9 % (0.0-12.0); Neutrophil % 67.7 % (36.0-66.0); Platelet Count 247 K/mm3 (150-450); Red Blood Count 4.59 M/mm3 (4.1-5.4); Red Cell Distribution Width 12.8 % (11.5-14.0); White Blood Count 7.7 K/mm3 (4.0-10.5)
[2019-06-12 16:30] LABS: ALBUMIN 4.7 g/dL (3.5-5.0); ALKALINE PHOSPHATASE 102 U/L (38-126); AMYLASE 69 U/L (30-110); ANION GAP 13.3 MEQ/L (5-15); BLOOD UREA NITROGEN 14 mg/dL (7-17); CHLORIDE 104 mmol/L (98-107); Calcium 9.2 mg/dL (8.4-10.2); Carbon Dioxide 26 mmol/L (22-30); Creatinine 1 0.53 mg/dL (0.52-1.04); Direct Bilirubin 0.3 mg/dL (0.0-0.4); Glucose 101 mg/dL (74-106); LIPASE 136 U/L (23-300); SGOT/AST 33 U/L (14-36); SGPT/ALT 24 U/L (0-35); SODIUM 139 mmol/L (137-145)
[2019-06-12 16:33] LABS: Potassium 4.4 mmol/L (3.5-5.1)
[2019-06-12] MEDS ORDERED: XYLOCAINE HCl Viscous ONE (16:36)
[2019-06-12] MEDS ORDERED: MAALOX ES 30 ML UNIT DOSE ONE (16:37)
[2019-06-12] MEDS ORDERED: GI COCKTAIL 45 ML (Maalox/Lidocaine) PO ONE (16:49)
--- NOTE | 2019-06-12 16:56 | XRAY ---
Indication: Chest burning sensation. Cholecystectomy April 2019. Multiple contiguous axial images obtained through the abdomen and pelvis using 80 cc of Isovue-370 contrast. Enteric contrast also used. Comparison: April 07, 2019. Lung bases remain clear. Heart is not enlarged. Contrasted stomach and bowel loops appear nonobstructed. Again previously reported appendectomy and hysterectomy. There is now mild fluid distended colon throughout with synchronous fluid leveling favoring ileus. There has been interval cholecystectomy with now minimal pneumobilia. Common bile duct measures 1.4 cm without obvious choledochal stone. There is a 0.7 x 2.2 cm fluid collection in the gallbladder fossa doubtful postoperative hematoma/seroma this far out from patient's surgery. Biloma not completely excluded. No free air. Stable subcentimeter left lobe hepatic cyst. Remaining liver, pancreas, spleen, adrenal glands, kidneys, ureters, and bladder appear unremarkable. Stable mild aortoiliac calcifications. No AAA or pathological retroperitoneal lymphadenopathy. Osseous structures again demonstrates lumbosacral junction degenerative changes and right hip heterotopic ossification. Impression: 1. Status post cholecystectomy. Negative choledochal stone. However tiny fluid in the gallbladder fossa, possibly biloma and less likely postoperative hematoma/seroma. 2. Mild fluid distended colon with fluid leveling throughout favoring ileus. 3. Stable hepatic cyst.
[2019-06-12] MEDS ORDERED: Lomotil PO ONE (18:19)
[2019-06-12] MEDS ORDERED: Lomotil ONE (18:22)
[2019-06-12] MEDS ORDERED: Nitrostat 0.4 MG (ED) SL ONE (18:24)
[2019-06-12 18:33] VITALS: BP 116/72; PULSE 94
[2019-06-12 18:37] LABS: Appearance CLEAR (CLEAR); Bilirubin NEGATIVE (NEGATIVE); Blood SMALL Ery/ul (0-5); Glucose NEGATIVE (NEGATIVE); Ketones NEGATIVE (NEGATIVE); Leukocyte Esterase NEGATIVE (NEGATIVE); Mucus SLIGHT /HPF (NEGATIVE); Nitrite NEGATIVE (NEGATIVE); Protein,Urine Dip NEGATIVE (Negative); Specific Gravity 1.053 (1.005-1.025); Urobilinogen NEGATIVE mg/dL (0-1)
== END 2019-06-12 20:03 | disposition short-term general hospital (02) ==
LOC: ED 15:16
DX: R74.8 Abnormal levels of other serum enzymes (principal); R07.9 Chest pain, unspecified
CPT/HCPCS: 36000; 36415; 74177; 80048; 80076; 81001; 82150; 83690; 84484; 85025; 93005; 96374; 99285; 99291; A9270-GY